=== PATIENT | male | born 1995 | race Caucasian/White ===

== ENCOUNTER 2022-01-31 22:20 | Emergency (ER) | payer SELFPAY ==
[2022-01-31] MEDS ORDERED: Diphtheria,Pertussis(Acell),Tetanus Vaccine 0.5 ML Syringe IM ONE (22:33)
== END 2022-01-31 23:42 | disposition home or self-care (01) ==
LOC: FB.ED 22:20
DX: S61.212A Laceration without foreign body of right middle finger without damage to nail, initial encounter (principal); Z23 Encounter for immunization; Z88.8 Allergy status to other drugs, medicaments and biological substances; W26.8XXA Contact with other sharp object(s), not elsewhere classified, initial encounter
CPT/HCPCS: 12002; 90471; 90715; 99282-25